=== PATIENT | female | born 1985 | race Two or more races ===

== ENCOUNTER 2017-05-11 13:31 | Inpatient (IN) | payer OTHER ==
[2017-05-11] MEDS ORDERED: CARBOPROST 250 MCG INJ IM (14:00)
[2017-05-11] MEDS ORDERED: OXYTOCIN 30 UNITS/LR 500 ML IV (14:00)
[2017-05-11] MEDS ORDERED: BUTORPHANOL 2 MG INJ IV ×2 (14:00)
[2017-05-11] MEDS ORDERED: MISOPROSTOL 200 MCG TAB PR (14:00)
[2017-05-11] MEDS ORDERED: LIDOCAINE 1% (MPF) 30 ML INJ INJ (14:00)
[2017-05-11] MEDS: LACTATED RINGER'S 500 ML IV ×3 (14:57→21:28)
[2017-05-11 15:37] LABS: ADD MAN DIFF? NO
[2017-05-11 15:40] LABS: BASOPHILS % 0.2 % (0.0-2.0); LYMPHOCYTES # 0.9 10^3/ul (0.8-2.9); LYMPHOCYTES % 9.6 % (15.0-51.0); MEAN CORPUSCULAR HEMOGLOBIN 26.6 pg (29.0-33.0); MEAN CORPUSCULAR VOLUME 85.8 fl (82.0-101.0); MEAN PLATELET VOLUME 9.6 fl (7.4-10.4); MONOCYTE # 0.5 10^3/ul (0.3-0.9); NEUTROPHIL # 7.6 10^3/ul (1.6-7.5); NEUTROPHILS % 83.6 % (39.0-77.0); PLATELET COUNT 380 10^3/UL (140-415); RED BLOOD COUNT 3.38 10^6/ul (4.20-5.40); RED CELL DISTRIBUTION WIDTH 13.6 % (11.5-14.5)
[2017-05-11] MEDS ORDERED: NALOXONE (0.4 MG/ML) INJ IV (16:00)
[2017-05-11] MEDS ORDERED: KETOROLAC 30 MG INJ IV (16:00)
[2017-05-11] MEDS ORDERED: HYDROmorphONE 0.5 MG/0.5 ML SYG IV ×2 (16:00)
[2017-05-11 17:49] LABS: INR 0.88; PT RATIO 0.9
[2017-05-11 17:50] LABS: PARTIAL THROMBOPLASTIN TIME 30.3 Sec (25.0-35.0)
[2017-05-11] MEDS: ONDANSETRON 4 MG INJ IV (20:22)
[2017-05-11 22:36] LABS: RAPID PLASMA REAGIN NONREACTIVE (NR)
[2017-05-12] MEDS: LACTATED RINGER'S 500 ML IV ×3 (01:07→06:08)
[2017-05-12] MEDS: DIPHENHYDRAMINE 50 MG INJ IV (02:16)
[2017-05-12] MEDS: FENTAnyl 2MCG/ML-ROPIV 0.2% 100 ML BAG EPI (02:18)
[2017-05-12] MEDS ORDERED: ACETAMINOPHEN 325 MG TAB (07:17)
[2017-05-12] MEDS ORDERED: AMPICILLIN 2 GM/NS (PMX) 0 ML (07:18)
[2017-05-12] MEDS: ACETAMINOPHEN 325 MG TAB PO (07:41)
[2017-05-12] MEDS: OXYTOCIN 30 UNITS/LR 500 ML IV ×4 (07:42→17:32)
[2017-05-12] MEDS ORDERED: AMPICILLIN 1 GM/NS (PMX) 50 ML IVPB (09:00)
[2017-05-12] MEDS ORDERED: LACTATED RINGER'S 500 ML IV (09:00)
[2017-05-12] MEDS: AMPICILLIN 2 GM/NS (PMX) 100 ML IVPB (09:45)
[2017-05-12] MEDS ORDERED: ACETAMINOPHEN 325 MG TAB PO (10:00)
[2017-05-12] MEDS ORDERED: HYDROCODONE/APAP (5/325) TAB PO (10:00)
[2017-05-12] MEDS ORDERED: ONDANSETRON 4 MG INJ IV (10:00)
[2017-05-12] MEDS ORDERED: DIBUCAINE 1% 30 GM OINT TOP (10:00)
[2017-05-12] MEDS ORDERED: OXYCODONE/ASPIRIN (4.88/325) TAB PO (10:00)
[2017-05-12] MEDS: BENZOCAINE 20% 56 ML SPRAY TOP (12:09)
[2017-05-12] MEDS: WITCH HAZEL/GLYCERIN PAD PR (12:09)
[2017-05-12] MEDS: LANOLIN 7 GM TUBE TOP (12:10)
[2017-05-12] MEDS: IBUPROFEN 600 MG TAB PO ×3 (12:10→23:50)
[2017-05-12] MEDS: HYDROCODONE/APAP (5/325) TAB PO (15:20)
[2017-05-12] MEDS ORDERED: METHYLERGONOVINE 0.2 MG INJ (16:34)
[2017-05-12] MEDS: METHYLERGONOVINE 0.2 MG INJ IM (16:35)
[2017-05-12] MEDS: SENNA/DOCUSATE NA (8.6MG/50MG) TAB PO (21:51)
[2017-05-13] MEDS: IBUPROFEN 600 MG TAB PO ×4 (05:56→23:58)
[2017-05-13 08:38] LABS: ADD MAN DIFF? NO
[2017-05-13 08:46] LABS: WHITE BLOOD COUNT 8.6 10^3/ul (4.8-10.8)
[2017-05-13 08:46] LABS: BASOPHILS % 0.2 % (0.0-2.0); EOSINOPHILS # 0.1 10^3/ul (0.0-0.5); EOSINOPHILS % 0.9 % (0.0-7.0); HEMATOCRIT 23.1 % (37.0-47.0); HEMOGLOBIN 7.1 g/dl (12.0-16.0); LYMPHOCYTES # 1.2 10^3/ul (0.8-2.9); LYMPHOCYTES % 13.6 % (15.0-51.0); MEAN CORPUSCULAR HEMOGLOBIN 26.7 pg (29.0-33.0); MEAN CORPUSCULAR HGB CONC 30.7 g/dl (32.0-37.0); MEAN CORPUSCULAR VOLUME 86.8 fl (82.0-101.0); MEAN PLATELET VOLUME 9.8 fl (7.4-10.4); MONOCYTE # 0.5 10^3/ul (0.3-0.9); MONOCYTES % 5.7 % (0.0-11.0); NEUTROPHIL # 6.8 10^3/ul (1.6-7.5); NEUTROPHILS % 78.7 % (39.0-77.0); PLATELET COUNT 312 10^3/UL (140-415); RED BLOOD COUNT 2.66 10^6/ul (4.20-5.40)
[2017-05-13] MEDS: SENNA/DOCUSATE NA (8.6MG/50MG) TAB PO ×2 (08:47→20:05)
[2017-05-13] MEDS: OXYCODONE/ASPIRIN (4.88/325) TAB PO (20:05)
[2017-05-14] MEDS: IBUPROFEN 600 MG TAB PO ×2 (05:37→12:40)
[2017-05-14] MEDS: MEASLES,MUMPS,RUBELLA VACCINE INJ SC* (09:58)
[2017-05-14] MEDS: SENNA/DOCUSATE NA (8.6MG/50MG) TAB PO (09:58)
== END 2017-05-14 14:35 | disposition home or self-care (01) | DRG 775 ==
LOC: OBT 13:31 → PP1 05-12 09:45 → L-D 13:31 → OBT 13:57 → L-D 13:50
PROVIDERS: Obstetrics & Gynecology
PROC: 10E0XZZ Delivery of Products of Conception, External Approach (ICD-10-PCS; principal; 2017-05-12)
PROC: 0HQ9XZZ Repair Perineum Skin, External Approach (ICD-10-PCS; 2017-05-12)
DX: O70.0 First degree perineal laceration during delivery (principal); O69.81X0 Labor and delivery complicated by cord around neck, without compression, not applicable or unspecified; Z37.0 Single live birth; Z3A.38 38 weeks gestation of pregnancy
CPT/HCPCS: 62319; 85025; 85610; 85730; 86592; 86900; 86901